=== PATIENT | male | born 1970 | race Caucasian/White ===

== ENCOUNTER 2024-08-08 11:09 | Emergency (ER) | payer OTHER ==
[2024-08-08] MEDS: Orphenadrine 60 MG/2 ML Inj IM ONE (11:36)
[2024-08-08] MEDS: Ketorolac 30 MG/ML SDV IM ONE (11:36)
[2024-08-08] MEDS: Lidocaine 4% 1 each Patch TOP STA (11:36)
== END 2024-08-08 13:28 | disposition home or self-care (01) ==
LOC: MW.ED 11:09
DX: S46.911A Strain of unspecified muscle, fascia and tendon at shoulder and upper arm level, right arm, initial encounter (principal); I10 Essential (primary) hypertension; E11.9 Type 2 diabetes mellitus without complications; Z79.84 Long term (current) use of oral hypoglycemic drugs; Z79.899 Other long term (current) drug therapy; Z75.8 Other problems related to medical facilities and other health care; W37.8XXA Explosion and rupture of other pressurized tire, pipe or hose, initial encounter
CPT/HCPCS: 73030; 96372; 99283; A9270; J1885; J2360